=== PATIENT | female | born 1950 | race Hispanic/Latino ===

== ENCOUNTER 2022-06-25 18:22 | Emergency (ER) | payer OTHER ==
[~2022-06-25] VITALS: Ht 154.9 cm; Wt 75.3 kg
[2022-06-25] MEDS ORDERED: ORPHENADRINE CITRATE 30 MG/ML ML IM ONE (20:00)
[2022-06-25] MEDS ORDERED: ACETAMINOPHEN 325 MG TAB PO ONE (20:00)
[2022-06-25 21:05] LABS: BASOPHILS % (AUTO) 0.9 % (0.0-5.0); EOSINOPHILS % (AUTO) 2.7 % (0.0-8.0); HEMATOCRIT 35.9 % (36-48); LYMPHOCYTES % (AUTO) 37.1 % (21.0-51.0); MEAN CORPUSCULAR HEMOGLOBIN 31.8 pg (27.0-33.0); MEAN CORPUSCULAR HGB CONC 35.4 g/dL (32.0-36.0); MEAN CORPUSCULAR VOLUME 89.8 fL (79-99); MONOCYTES % (AUTO) 8.1 % (3.0-13.0); NEUTROPHILS % (AUTO) 49.6 % (40.0-77.0); PLATELET COUNT (AUTO) 368 K/uL (130-400); RED CELL DISTRIBUTION WIDTH 11.6 % (11.0-15.5); WHITE BLOOD COUNT (AUTO) 10.9 K/uL (4.8-10.8)
[2022-06-25 21:15] LABS: CREATININE 1.1 mg/dL (0.5-1.5); POTASSIUM 3.9 mmol/L (3.5-5.1)
[2022-06-25 21:48] VITALS: BP 146/95
[2022-06-25] MEDS ORDERED: NAPR-1180 PO (22:09)
[2022-06-25] MEDS ORDERED: CYCL-309 PO (22:09)
== END 2022-06-25 22:13 | disposition home or self-care (01) ==
LOC: EDH 18:22
DX: M54.2 Cervicalgia (principal); M54.10 Radiculopathy, site unspecified; E78.00 Pure hypercholesterolemia, unspecified; I10 Essential (primary) hypertension; Z98.890 Other specified postprocedural states
CPT/HCPCS: 99285; 72125; 80048; 85025; 36415; 72040; 96372; 93005; J2360

== ENCOUNTER → 2022-07-12 | Outpatient (CLI) | payer OTHER ==
[~2022-07-12] MED LIST: CYCL-309 PO; NAPR-1180 PO
== END | disposition home or self-care (01) ==
LOC: RAH 09:42
PROVIDERS: ATTEND Family Medicine
DX: E04.9 Nontoxic goiter, unspecified (principal)
CPT/HCPCS: 76536

== ENCOUNTER → 2022-07-31 | Outpatient (CLI) | payer OTHER ==
[2022-07-31 10:10] LABS: INR 0.93 (0.85-1.15)
[2022-07-31 10:11] LABS: PARTIAL THROMBOPLASTIN TIME 25.6 SEC (26.3-35.5)
== END | disposition home or self-care (01) ==
LOC: LAB 09:27
PROVIDERS: ATTEND Otolaryngology
DX: I60.4 Nontraumatic subarachnoid hemorrhage from basilar artery (principal); E04.1 Nontoxic single thyroid nodule
CPT/HCPCS: 36415; 85610; 85730

== ENCOUNTER → 2022-08-06 | Outpatient (CLI) | payer OTHER | END | disposition home or self-care (01) | LOC: RAH 07:43 | PROVIDERS: ATTEND Otolaryngology | DX: E04.1 Nontoxic single thyroid nodule (principal) | CPT/HCPCS: 10005; 76942; 88173; 88305 ==

== ENCOUNTER 2023-06-07 11:42 | Observation (INO) | payer OTHER ==
[~2023-06-07] VITALS: Ht 165.1 cm; Wt 80.3 kg
[2023-06-07 12:19] LABS: BASOPHILS # (AUTO) 0.09 K/uL (0.00-0.20); BASOPHILS % (AUTO) 0.4 % (0.0-5.0); EOSINOPHILS # (AUTO) 0.06 K/uL (0.00-0.70); EOSINOPHILS % (AUTO) 0.3 % (0.0-8.0); HEMATOCRIT 32.9 % (36-48); LYMPHOCYTES # (AUTO) 1.6 K/uL (1.0-4.8); LYMPHOCYTES % (AUTO) 7.7 % (21.0-51.0); MEAN CORPUSCULAR HEMOGLOBIN 31.3 pg (27.0-33.0); MEAN CORPUSCULAR HGB CONC 35.3 g/dL (32.0-36.0); MEAN CORPUSCULAR VOLUME 88.7 fL (79-99); MONOCYTES # (AUTO) 1.3 K/uL (0.1-1.0); MONOCYTES % (AUTO) 6.1 % (3.0-13.0); NEUTROPHILS # (AUTO) 17.8 K/uL (1.8-7.7); NEUTROPHILS % (AUTO) 84.5 % (40.0-77.0); PLATELET COUNT (AUTO) 324 K/uL (130-400); RED BLOOD CELL COUNT(AUTO) 3.71 MIL/uL (4.00-5.50); RED CELL DISTRIBUTION WIDTH 12.2 % (11.0-15.5)
[2023-06-07] MEDS ORDERED: CEFTRIAXONE 2GM VIAL IVPB ONE (12:30)
[2023-06-07 12:36] LABS: APPEARANCE,URINE CLEAR (CLEAR); BILIRUBIN,URINE NEGATIVE (NEGATIVE); COLOR,URINE LIGHT-YELLOW (YELLOW); GLUCOSE, URINE (UA) NEGATIVE (NEGATIVE); KETONES,URINE NEGATIVE (NEGATIVE); LEUKOCYTE ESTERASE ,URINE NEGATIVE Leu/uL (NEGATIVE); NITRATE,URINE NEGATIVE (NEGATIVE); OCCULT BLOOD,URINE SMALL (NEGATIVE); PH,URINE 6.5 (5.0-8.0); PROTEIN,URINE NEGATIVE (NEGATIVE); UROBILINOGEN,URINE 0.2 mg/dL (0.2-1.0)
[2023-06-07 12:39] LABS: ADD UA MICROSCOPIC YES
[2023-06-07 12:42] LABS: SQUAMOUS EPITHELIAL CELL,UR RARE /HPF (0-2)
[2023-06-07 12:44] LABS: INR 0.93 (0.85-1.15); PROTHROMBIN TIME 10.6 SEC (9.6-11.6)
[2023-06-07 12:45] LABS: PARTIAL THROMBOPLASTIN TIME 26.8 SEC (26.3-35.5)
[2023-06-07] MEDS ORDERED: 0.9%NACL 1000ML 1,572 ML IV ONE (13:00)
[2023-06-07 13:20] LABS: CREATININE 1.1 mg/dL (0.5-1.5); POTASSIUM 3.6 mmol/L (3.5-5.1)
[2023-06-07 13:25] LABS: ALBUMIN 3.6 g/dL (3.5-5.0); BILIRUBIN,TOTAL 0.6 mg/dL (0.2-1.0); TOTAL PROTEIN, SERUM 7.6 g/dL (6.0-8.3)
[2023-06-07] MEDS ORDERED: LACTULOSE 20 GM/30 ML UDCUP PO PRN (16:00)
[2023-06-07] MEDS ORDERED: ACETAMINOPHEN 325 MG TAB PO PRN (16:00)
[2023-06-07] MEDS ORDERED: ACETAMINOPHEN 650 MG SUPPOSITORY RC PRN (16:00)
[2023-06-07] MEDS ORDERED: HYDRALAZINE 20MG/ML VIAL IV PRN (16:00)
[2023-06-07] MEDS ORDERED: CLONIDINE HCL 0.1 MG TABLET PO PRN (16:00)
[2023-06-07] MEDS ORDERED: LABETALOL 20MG SYG IV PRN (16:00)
[2023-06-07] MEDS ORDERED: ONDANSETRON 4MG INJ IVP PRN (16:00)
[2023-06-07] MEDS: 0.9%NACL 1000ML 1,000 ML IV SCH (17:55)
[2023-06-07] MEDS: DOXYCYCLINE 100MG+NS 250ML IV SCH (17:55)
[2023-06-07 18:55] VITALS: BP 129/80; PULSE 100; RESP 20
[2023-06-07 18:58] VITALS: TEMP 100.3
[2023-06-07 19:14] LABS: SARS-CoV-2, RNA, NAAT NEGATIVE SARS CoV-2 (NEGATIVE)
[2023-06-07 19:15] LABS: INFLUENZA TYPE A Negative For Type A (NEGATIVE); INFLUENZA TYPE B Negative For Type B (NEGATIVE)
[2023-06-07] MEDS ORDERED: AMLO25PO MC (22:15)
[2023-06-07] MEDS ORDERED: LISI1TAB53 PO (22:15)
[2023-06-07] MEDS ORDERED: METF-444 PO (22:15)
[2023-06-07] MEDS ORDERED: MIRT-22 PO (22:15)
[2023-06-07] MEDS ORDERED: GABA-529 PO (22:15)
[2023-06-07] MEDS ORDERED: FENO48TA10 PO (22:15)
[2023-06-07] MEDS ORDERED: FAMO40TA7 PO (22:15)
[2023-06-07] MEDS ORDERED: ALEN70TA80 PO (22:15)
[2023-06-07] MEDS: TEMAZEPAM 15 MG CAPSULE PO PRN (22:22)
[2023-06-07 22:27] VITALS: O2SAT 98
[2023-06-07 23:46] VITALS: BP 112/54; PULSE 77; RESP 20
[2023-06-08] MEDS: 0.9%NACL 1000ML 1,000 ML IV SCH ×3 (02:43→22:30)
[2023-06-08 04:00] VITALS: BP 118/55; PULSE 75; RESP 20
[2023-06-08] MEDS: DOXYCYCLINE 100MG+NS 250ML IV SCH ×2 (04:05→16:57)
[2023-06-08 04:24] LABS: BASOPHILS # (AUTO) 0.09 K/uL (0.00-0.20); BASOPHILS % (AUTO) 0.6 % (0.0-5.0); EOSINOPHILS # (AUTO) 0.19 K/uL (0.00-0.70); EOSINOPHILS % (AUTO) 1.2 % (0.0-8.0); HEMATOCRIT 28.1 % (36-48); LYMPHOCYTES # (AUTO) 3.3 K/uL (1.0-4.8); LYMPHOCYTES % (AUTO) 21.3 % (21.0-51.0); MEAN CORPUSCULAR HEMOGLOBIN 30.9 pg (27.0-33.0); MEAN CORPUSCULAR HGB CONC 33.5 g/dL (32.0-36.0); MEAN CORPUSCULAR VOLUME 92.4 fL (79-99); MONOCYTES # (AUTO) 1.1 K/uL (0.1-1.0); MONOCYTES % (AUTO) 7.4 % (3.0-13.0); NEUTROPHILS # (AUTO) 10.5 K/uL (1.8-7.7); NEUTROPHILS % (AUTO) 68.8 % (40.0-77.0); PLATELET COUNT (AUTO) 248 K/uL (130-400); RED BLOOD CELL COUNT(AUTO) 3.04 MIL/uL (4.00-5.50); RED CELL DISTRIBUTION WIDTH 12.6 % (11.0-15.5); WHITE BLOOD COUNT (AUTO) 15.3 K/uL (4.8-10.8)
[2023-06-08 04:29] LABS: HEMOGLOBIN A1C 7.4 % (4.0-6.0)
[2023-06-08 04:44] LABS: CREATININE 0.9 mg/dL (0.5-1.5); MAGNESIUM 1.8 mg/dL (1.80-2.40); POTASSIUM 3.4 mmol/L (3.5-5.1); THYROID STIMULATING HORMONE 1.73 uIU/mL (0.36-3.74)
[2023-06-08] MEDS: KCL 20 MEQ ERTAB PO PRN ×3 (05:15→13:05)
[2023-06-08] MEDS ORDERED: MAGNESIUM 2GM PREMIX 50ML 50 ML IV PRN (05:30)
[2023-06-08] MEDS ORDERED: POTASSIUM CHLORIDE 10% ELIXIR 20 MEQ/15 ML UDCUP PO PRN (05:30)
[2023-06-08] MEDS ORDERED: POTASSIUM CHLORIDE 20MEQ/100ML 100 ML IV PRN (05:30)
[2023-06-08] MEDS: INSULIN HUMULIN R 100 UNIT/ML 3ML SQ SCH ×4 (05:47→20:24)
[2023-06-08 08:00] VITALS: BP 104/40; PULSE 70; RESP 16; O2SAT 97
[2023-06-08 12:00] VITALS: BP 127/76; PULSE 71; RESP 16
[2023-06-08 16:00] VITALS: BP 138/60; PULSE 77; RESP 20
[2023-06-08] MEDS ORDERED: CEFTRIAXONE 2GM VIAL IVPB SCH (16:30)
[2023-06-08 17:20] LABS: MAGNESIUM 2.3 mg/dL (1.80-2.40); POTASSIUM 3.9 mmol/L (3.5-5.1)
[2023-06-08 19:00] VITALS: BP 149/64; PULSE 84; RESP 16
[2023-06-08] MEDS: TEMAZEPAM 15 MG CAPSULE PO PRN (21:45)
[2023-06-08 23:41] VITALS: BP 123/56; PULSE 72; RESP 18
[2023-06-09 04:00] VITALS: BP 129/57; PULSE 68; RESP 18
[2023-06-09] MEDS: DOXYCYCLINE 100MG+NS 250ML IV SCH (04:01)
[2023-06-09 04:39] LABS: MEAN CORPUSCULAR HEMOGLOBIN 30.5 pg (27.0-33.0); MEAN CORPUSCULAR HGB CONC 33.1 g/dL (32.0-36.0); MEAN CORPUSCULAR VOLUME 92.1 fL (79-99); RED BLOOD CELL COUNT(AUTO) 3.15 MIL/uL (4.00-5.50); RED CELL DISTRIBUTION WIDTH 12.6 % (11.0-15.5); WHITE BLOOD COUNT (AUTO) 9.1 K/uL (4.8-10.8)
[2023-06-09 04:41] LABS: CREATININE 0.8 mg/dL (0.5-1.5); MAGNESIUM 2.2 mg/dL (1.80-2.40)
[2023-06-09] MEDS: INSULIN HUMULIN R 100 UNIT/ML 3ML SQ SCH ×2 (05:32→12:50)
[2023-06-09 08:00] VITALS: BP 127/56; PULSE 67; RESP 18; O2SAT 100
[2023-06-09] MEDS: 0.9%NACL 1000ML 1,000 ML IV SCH (08:30)
[2023-06-09] MEDS ORDERED: ENOXAPARIN SODIUM 40 MG/0.4 ML SYRINGE SQ SCH (09:00)
[2023-06-09] MEDS ORDERED: PANTOPRAZOLE 40 MG TAB DR PO SCH (09:00)
[2023-06-09 12:00] VITALS: BP 144/71; PULSE 71; RESP 18
== END 2023-06-09 14:10 | disposition home or self-care (01) ==
LOC: EDH 11:42 → OBSVTOIN 16:00 → INTOOBSV 16:00 → EDHIP 16:00 → 4CH 18:50
PROVIDERS: ADMIT Internal Medicine Critical Care Medicine; ATTEND Internal Medicine Critical Care Medicine
DX: E87.20 Acidosis, unspecified (principal); Z20.822 Contact with and (suspected) exposure to COVID-19; R50.9 Fever, unspecified; I10 Essential (primary) hypertension; E66.3 Overweight; E11.9 Type 2 diabetes mellitus without complications; E78.00 Pure hypercholesterolemia, unspecified; Z90.710 Acquired absence of both cervix and uterus; Z68.29 Body mass index [BMI] 29.0-29.9, adult; Z79.899 Other long term (current) drug therapy
CPT/HCPCS: 99284; 96365; 71045; 87635; 96376; 82550; 84484; 80053; 85025 ×2; 85610; 85730; 87040 ×2; 87088; 87804 ×2; 82948 ×7; 83605 ×2; 81001; 36415 ×3; 96361; 96366 ×4; 96367 ×2; 83036; 84443; 83735 ×3; 80048 ×2; 84439; 84481; 84132; 96372; 85027; J0696; J3475; J3490 ×3; J1815; G0378; J1650

== ENCOUNTER 2024-05-16 19:11 | Emergency (ER) | payer OTHER ==
[~2024-05-16] VITALS: Ht 157.5 cm; Wt 78.0 kg
[~2024-05-16 19:11] MED LIST changes: +ALEN70TA80 PO; +AMLO25PO MC; +FAMO40TA7 PO; +FENO48TA10 PO; +GABA-529 PO; +LISI1TAB53 PO; +METF-444 PO; +MIRT-22 PO
[2024-05-16 19:39] LABS: BASOPHILS # (AUTO) 0.13 K/uL (0.00-0.20); EOSINOPHILS # (AUTO) 0.14 K/uL (0.00-0.70); EOSINOPHILS % (AUTO) 1.1 % (0.0-8.0); HEMATOCRIT 31.8 % (36-48); IMMATURE GRANULOCYTE ABSOLUTE 0.11 K/uL (0-1); LYMPHOCYTES # (AUTO) 4.2 K/uL (1.0-4.8); MEAN CORPUSCULAR HEMOGLOBIN 30.1 pg (27.0-33.0); MEAN CORPUSCULAR HGB CONC 35.2 g/dL (32.0-36.0); MEAN CORPUSCULAR VOLUME 85.5 fL (79-99); MONOCYTES # (AUTO) 0.9 K/uL (0.1-1.0); MONOCYTES % (AUTO) 6.6 % (3.0-13.0); NEUTROPHILS # (AUTO) 7.7 K/uL (1.8-7.7); NEUTROPHILS % (AUTO) 58.5 % (40.0-77.0); PLATELET COUNT (AUTO) 406 K/uL (130-400); RED BLOOD CELL COUNT(AUTO) 3.72 MIL/uL (4.00-5.50); RED CELL DISTRIBUTION WIDTH 11.9 % (11.0-15.5); WHITE BLOOD COUNT (AUTO) 13.2 K/uL (4.8-10.8)
[2024-05-16 19:53] LABS: BILIRUBIN,TOTAL 0.3 mg/dL (0.2-1.0); CREATININE 1.3 mg/dL (0.5-1.0); POTASSIUM 3.5 mmol/L (3.5-5.1); TOTAL PROTEIN, SERUM 8.1 g/dL (6.0-8.3)
[2024-05-16 20:20] LABS: B-TYPE NATRIURETIC PEPTIDE 13 pg/mL (0-100)
[2024-05-16] MEDS: mecliZINE HCL 25 MG TABLET PO ONE (20:30)
[2024-05-16 20:39] LABS: APPEARANCE,URINE CLEAR (CLEAR); BILIRUBIN,URINE NEGATIVE (NEGATIVE); COLOR,URINE COLORLESS (YELLOW); GLUCOSE, URINE (UA) NEGATIVE (NEGATIVE); KETONES,URINE NEGATIVE (NEGATIVE); LEUKOCYTE ESTERASE ,URINE NEGATIVE Leu/uL (NEGATIVE); NITRATE,URINE NEGATIVE (NEGATIVE); OCCULT BLOOD,URINE NEGATIVE (NEGATIVE); PROTEIN,URINE NEGATIVE (NEGATIVE); UROBILINOGEN,URINE 0.2 mg/dL (0.2-1.0)
[2024-05-16 20:41] LABS: ADD UA MICROSCOPIC YES
[2024-05-16 20:43] LABS: BACTERIA,URINE RARE /HPF (None Seen); RBC,URINE 0-1 /HPF (0-1); WBC,URINE 0-1 /HPF (0-1)
[2024-05-16] MEDS: LACTATED RINGERS IV ONE (20:46)
[2024-05-16] MEDS ORDERED: MECL-302 PO (21:24)
[2024-05-16 21:33] VITALS: BP 156/64; PULSE 77; RESP 16; TEMP 97.1; O2SAT 99
== END 2024-05-16 22:20 | disposition home or self-care (01) ==
LOC: EDH 19:11
DX: E11.9 Type 2 diabetes mellitus without complications (principal); H81.10 Benign paroxysmal vertigo, unspecified ear; E78.00 Pure hypercholesterolemia, unspecified; F32.A Depression, unspecified; I10 Essential (primary) hypertension; K21.9 Gastro-esophageal reflux disease without esophagitis; Z79.84 Long term (current) use of oral hypoglycemic drugs; Z79.899 Other long term (current) drug therapy; Z90.49 Acquired absence of other specified parts of digestive tract; Z90.710 Acquired absence of both cervix and uterus; Z98.890 Other specified postprocedural states
CPT/HCPCS: 99285; 96360; 70450; 71045; 83735; 84484; 80053; 83880; 85025; 81001; 36415; 93005; J7120

== ENCOUNTER 2024-07-19 09:31 | Emergency (ER) | payer OTHER ==
[~2024-07-19] VITALS: Ht 152.4 cm; Wt 74.4 kg
[~2024-07-19 09:31] MED LIST changes: +MECL-302 PO
[2024-07-19 09:44] VITALS: TEMP 97.9
[2024-07-19 10:50] LABS: BASOPHILS # (AUTO) 0.15 K/uL (0.00-0.20); BASOPHILS % (AUTO) 1.4 % (0.0-5.0); EOSINOPHILS # (AUTO) 0.18 K/uL (0.00-0.70); EOSINOPHILS % (AUTO) 1.7 % (0.0-8.0); HEMATOCRIT 36.7 % (36-48); IMMATURE GRANULOCYTE ABSOLUTE 0.06 K/uL (0-1); LYMPHOCYTES # (AUTO) 2.3 K/uL (1.0-4.8); LYMPHOCYTES % (AUTO) 22.1 % (21.0-51.0); MEAN CORPUSCULAR HEMOGLOBIN 30.3 pg (27.0-33.0); MEAN CORPUSCULAR HGB CONC 34.1 g/dL (32.0-36.0); MEAN CORPUSCULAR VOLUME 89.1 fL (79-99); MONOCYTES # (AUTO) 0.9 K/uL (0.1-1.0); MONOCYTES % (AUTO) 8.7 % (3.0-13.0); NEUTROPHILS # (AUTO) 6.9 K/uL (1.8-7.7); NEUTROPHILS % (AUTO) 65.5 % (40.0-77.0); PLATELET COUNT (AUTO) 413 K/uL (130-400); RED BLOOD CELL COUNT(AUTO) 4.12 MIL/uL (4.00-5.50); WHITE BLOOD COUNT (AUTO) 10.5 K/uL (4.8-10.8)
[2024-07-19 11:03] LABS: CREATININE 1.2 mg/dL (0.5-1.0)
[2024-07-19] MEDS: ondanSETRON ODT 4MG TAB SL ONE (11:05)
[2024-07-19 11:10] LABS: B-TYPE NATRIURETIC PEPTIDE < 5 pg/mL (0-100)
[2024-07-19 12:18] LABS: ALBUMIN 3.5 g/dL (3.5-5.0); BILIRUBIN,DIRECT 0.2 mg/dL (0.0-0.3); BILIRUBIN,TOTAL 0.4 mg/dL (0.2-1.0)
[2024-07-19] MEDS: FAMOTIDINE 20MG VIAL IV ONE (12:27)
[2024-07-19] MEDS: 0.9%NACL 1000ML 1,000 ML IV SCH (12:27)
[2024-07-19] MEDS ORDERED: ONDA-243 PO (13:38)
[2024-07-19] MEDS ORDERED: FAMO-136 PO (13:38)
[2024-07-19 14:20] VITALS: BP 133/64; PULSE 82; RESP 17; O2SAT 99
== END 2024-07-19 14:10 | disposition home or self-care (01) ==
LOC: EDH 09:31
DX: R11.0 Nausea (principal); H81.10 Benign paroxysmal vertigo, unspecified ear; E87.1 Hypo-osmolality and hyponatremia; J93.82 Other air leak; E86.0 Dehydration; E11.9 Type 2 diabetes mellitus without complications; I10 Essential (primary) hypertension; Z79.84 Long term (current) use of oral hypoglycemic drugs; Z79.899 Other long term (current) drug therapy; Z90.710 Acquired absence of both cervix and uterus
CPT/HCPCS: 99285; 96374; 71046; 96361; 80076; 84484; 80048; 83880; 83690; 85025; 36415; 93005; J3490; J7030